=== PATIENT | female | born 1950 | race Asian ===

== ENCOUNTER 2016-10-11 23:30 | Emergency (ER) | payer OTHER ==
[~2016-10-11] VITALS: Ht 160 cm; Wt 42.0 kg
[~2016-10-11 23:30] MED LIST: GLIM2TAB PO; METF1000 PO; PRAV20TA63 PO
[2016-10-11 23:37] VITALS: Ht 160 cm; Wt 42.0 kg
[2016-10-12] MEDS ORDERED: MTF1000T PO (00:47)
[2016-10-12] MEDS ORDERED: GLIM2TAB PO (00:48)
--- NOTE | 2016-10-12 01:54 | ERD ---
ER Documentation Chief Complaint Date/Time DATE: 10/12/16 TIME: 01:52 Chief Complaint medication refill- metformin & glymepiride , [id number] asymtomatic HPI This is a 65-year-old female presents to the ER for medication refill. Patient has a past medical history of diabetes and has not had her medication for the last 3 days. Patient denies any chest pain, shortness of breath, weakness, shakiness. Patient has not had any fevers or chills. She normally follows up with her primary care doctor however her appointment is not until tomorrow. ROS 12 point review of systems was done, all negative except per HPI. Medications Home Meds Active Scripts Glimepiride* (Glimepiride*) 2 Mg Tablet, 2 MG PO BID for 10 Days, TAB Prov:KATTY ATKINSON 10/12/16 Metformin* (Glucophage*) 1,000 Mg Tablet, 1000 MG PO BID, #20 TAB Prov:KATTY ATKINSON 10/12/16 Reported Medications Pravastatin Sodium* (Pravastatin Sodium*) 20 Mg Tablet, 20 MG PO HS, TAB 09/02/14 Glimepiride* (Glimepiride*) 2 Mg Tablet, 2 MG PO WITH BREAKFAST, TAB 09/02/14 Metformin Hcl* (Metformin Hcl*) 1,000 Mg Tablet, 1000 MG PO WITH BREAKFAST, TAB 09/02/14 Allergies Allergies: Coded Allergies: No Known Allergy (Unverified , 09/02/14) PMhx/Soc History of Surgery: No Anesthesia Reaction: No Hx Neurological Disorder: No Hx Respiratory Disorders: No Hx Cardiac Disorders: No Hx Psychiatric Problems: No Hx Miscellaneous Medical Probl: Yes (DM II) Hx Alcohol Use: No Hx Substance Use: No Hx Tobacco Use: No Smoking Status: Never smoker Physical Exam Vitals Vital Signs Date Time Temp Pulse Resp B/P Pulse Ox O2 Delivery O2 Flow Rate FiO2 10/11/16 23:37 98.3 77 20 176/80 100 Physical Exam Const: [] Head: Atraumatic Eyes: Normal Conjunctiva ENT: Normal External Ears, Nose and Mouth. Resp: Clear to auscultation bilaterally Cardio: Regular rate and rhythm, no murmurs Skin: No petechiae or rashes Neur: Awake and alert Psych: Normal Mood and Affect Results 24 hrs Laboratory Tests Test 10/11/16 23:37 Bedside Glucose 328mg/dL Procedures/MDM This is a 65-year-old female presents to the ER for medication refill. At this time patient is completely asymptomatic. I do not believe that insulin is necessary at this time patient does not have any symptoms. Patient has never had insulin in the past and insulin may make her sugar too low. Patient will be given a prescription for her medications, she is to start taking them immediately. Patient is to follow-up with her primary care doctor within 1-2 days or return to ER sooner if symptoms worsen. My medical decision making was shared with the patient she understands and agrees with plan. Departure Diagnosis: Primary Impression: Encounter for medication refill Condition: Stable Patient Instructions: Taking Medicine Safely Referrals: AKOSUA OREILLY (PCP) Additional Instructions: Call your primary care doctor TOMORROW for an appointment during the next 1-2 days.See the doctor sooner or return here if your condition worsens before your appointment time. KATTY ATKINSON Oct 12, 2016 01:54
== END 2016-10-12 00:53 | disposition home or self-care (01) ==
LOC: FTE 23:30
DX: Z76.0 Encounter for issue of repeat prescription (principal); E11.9 Type 2 diabetes mellitus without complications; Z79.84 Long term (current) use of oral hypoglycemic drugs
CPT/HCPCS: 82962; Z7502; 99281

== ENCOUNTER 2018-05-09 00:29 | Emergency (ER) | END 2018-05-09 02:21 | disposition home or self-care (01) ==